=== PATIENT | male | born 1965 | race Caucasian/White ===

== ENCOUNTER 2017-02-23 09:21 | Outpatient (CLI) | payer OTHER ==
[2017-02-23 10:32] LABS: #Eosinphils 0.1 thou/uL (0.0-0.7); #Lymphocytes 1.7 thou/uL (1.20-3.40); #Monocytes 0.4 thou/uL (0.11-0.59); #Neutrophils 2.3 thou/uL (1.40-6.50); %Basophils 0.8 % (0.0-1.0); %Lymphocytes 37.7 % (21.0-51.0); Hematocrit 44.7 % (42.0-52.0); Mean Platelet Volume 6.1 fL (7.4-10.4); Red Blood Cell (RBC) Count 4.84 mill/uL (4.70-6.10); White Blood Cell (WBC) Count 4.4 thou/uL (4.8-10.8)
[2017-02-23 11:01] LABS: Anion Gap 12 mmol/L (10-20); BUN (Urea Nitrogen) 12 mg/dL (8.9-20.6); Calc. Creatinine Clearance 0 mL/min (70-130); Calcium 9.5 mg/dL (7.8-10.44); Carbon Dioxide 25 mmol/L (22-29); Chloride 106 mmol/L (98-107); Estimated GFR-MDRD Greater than 90
== END 2017-02-23 09:22 | disposition home or self-care (01) ==
LOC: LABBT 09:21
PROVIDERS: ATTEND Surgery
DX: Z01.818 Encounter for other preprocedural examination (principal); K43.9 Ventral hernia without obstruction or gangrene
CPT/HCPCS: 80048; 85025; 93005; 93010

== ENCOUNTER 2017-03-05 05:45 | Day surgery (SDC) | payer OTHER ==
[2017-02-23 09:41] VITALS: BMI 41.8
[2017-03-05] MEDS ORDERED: Midazolam HCl 2 mg/2 ml Vial ONE (06:47)
[2017-03-05] MEDS ORDERED: Fentanyl 100 MCG/2 ML VIAL ONE (06:47)
[2017-03-05] MEDS ORDERED: Bupivacaine/Epinephrine 0.25% 30 ML VIAL ONE (06:48)
[2017-03-05] MEDS ORDERED: CEFAZOLIN/Water 2 GM/20 ML SYRINGE ONE (07:09)
[2017-03-05] MEDS ORDERED: HYDROcodone/Acetaminophen 5/325 mg Tablet ONE (12:53)
[2017-03-05] MEDS ORDERED: Succinylcholine Chloride 20 MG/ML 10 ml SYRINGE FS ONE (15:52)
[2017-03-05] MEDS ORDERED: Glycopyrrolate 0.2 MG/ML 5 ML SYRINGE ONE (15:52)
[2017-03-05] MEDS ORDERED: Ketorolac Tromethamine 30 MG/ML VIAL ONE (15:52)
[2017-03-05] MEDS ORDERED: ePHEDrine/0.9% NaCl/PF SYRINGE 50 mg/10 ml ONE (15:52)
[2017-03-05] MEDS ORDERED: Dexamethasone 20 MG/5 ML VIAL ONE (15:52)
[2017-03-05] MEDS ORDERED: Propofol 200 MG/20 ML VIAL ONE (15:52)
[2017-03-05] MEDS ORDERED: Ondansetron HCl/PF 4 MG/2 ML Vial ONE (15:52)
[2017-03-05] MEDS ORDERED: Lidocaine 1% PF 5 ML VIAL ONE (15:52)
--- NOTE | 2017-03-06 11:34 | OP ---
DATE OF PROCEDURE: 03/05/2017 PREOPERATIVE DIAGNOSIS: Ventral hernia. POSTOPERATIVE DIAGNOSIS: Ventral hernia. PROCEDURE: Laparoscopic da Katja robot ventral hernia repair with mesh, Ventralex ST 9 cm. SURGEON: Ari Cummins M.D. ANESTHESIA: General. ESTIMATED BLOOD LOSS: Minimal. COMPLICATIONS: None. TECHNIQUE: The patient was taken to the operating room and placed supine on the table. After genera l anesthetic was obtained a Mccormick was placed. OG tube was placed. The abdomen was shaved, and drape d in a sterile fashion. Left subcostal 12-mm trocar was placed under direct vision without injury. High-flow pneumoperitoneum was obtained. Left and right subcostal 8 mm robot ports were placed, all ports were docked to the robot. The surgeon goes to the console. The posterior peritoneal fat is ta adan down exposing the posterior fascia in the area of the ventral hernia at the level of the umbilicu s and above. There is 3-4 cm defect. A #1 V-Loc suture was used to close this primarily and this ne edle removed from the abdomen. Next a [address] mesh is hydrated, rolled, and placed into th e abdominal cavity. It was placed up against the posterior fascia with the nonadhesive barrier down towards the abdominal viscera, 0 Stratafix bidirectional suture was used to sew the Ventralex circumf erentially to the posterior fascia. All needles were removed from the abdomen. All port sites are i nfiltrated using local anesthetic. All ports were removed under camera visualization, 0 Vicryl was u sed to close the fascial defect at the 12 mm trocar site before it was removed. The patient was en r oute to recovery in stable condition. All instrument counts, needle counts, and lap counts are corre ct.
== END 2017-03-05 13:19 | disposition home or self-care (01) ==
LOC: SDC 05:45
PROVIDERS: ATTEND Surgery
PROC: 0WUF4JZ Supplement Abdominal Wall with Synthetic Substitute, Percutaneous Endoscopic Approach (ICD-10-PCS; principal; 2017-03-05)
DX: K43.9 Ventral hernia without obstruction or gangrene (principal); G47.30 Sleep apnea, unspecified; Z79.899 Other long term (current) drug therapy; Z98.890 Other specified postprocedural states; Z88.0 Allergy status to penicillin; Z99.89 Dependence on other enabling machines and devices
CPT/HCPCS: C1781; J0131; J1100; J1885; J2001; J2250; J2405; J2704; J3010

== ENCOUNTER 2020-05-18 08:17 | Outpatient (CLI) | payer BC | END 2020-05-18 08:18 | disposition home or self-care (01) | LOC: TBSIIMAG 08:17 | PROVIDERS: ATTEND Anesthesiology | DX: M47.26 Other spondylosis with radiculopathy, lumbar region (principal); M47.22 Other spondylosis with radiculopathy, cervical region | CPT/HCPCS: 72141; 72148 ==

== ENCOUNTER 2020-05-30 12:23 | Outpatient (CLI) | payer BC ==
--- NOTE | 2020-05-30 13:18 | ULT ---
Exam: Bilateral renal ultrasound HISTORY: Previous right ureteral calculus removal. COMPARISON: None FINDINGS: Right kidney: Normal cortical echotexture. 0.5 cm echogenic focus in the mid right renal cortex. No h ydronephrosis. Right kidney measurements: 6.2 x 6.6 x 11.2 cm. Left kidney: Normal cortical echotexture. No hydronephrosis Left kidney measurements 6.2 x 11.6 x 5.5 cm. Urinary bladder: Normal mucosa. Bilateral ureteral jets are identified. Prevoid volume 159 mL. Post void volume 5 mL. IMPRESSION: 1. Nonobstructing calculus in the mid right renal cortex. 2. No significant post void residual.
== END 2020-05-30 12:24 | disposition home or self-care (01) ==
LOC: BICULT 12:23
PROVIDERS: ATTEND Urology
DX: N20.1 Calculus of ureter (principal); N20.0 Calculus of kidney
CPT/HCPCS: 76770

== ENCOUNTER 2020-12-21 08:32 | Outpatient (CLI) | payer BC | END 2020-12-21 08:33 | disposition home or self-care (01) | LOC: BICRAD 08:32 | PROVIDERS: ATTEND Urology | DX: N20.1 Calculus of ureter (principal) | CPT/HCPCS: 74018 ==